=== PATIENT | female | born 1980 | race Caucasian/White ===

== ENCOUNTER 2022-06-27 13:16 | Emergency (ER) | payer OTHER ==
[~2022-06-27] VITALS: Ht 172.7 cm; Wt 62.6 kg
== END 2022-06-27 18:28 | disposition home or self-care (01) ==
LOC: ER 13:16
DX: R42 Dizziness and giddiness (principal)

== ENCOUNTER 2022-06-29 14:06 | Emergency (ER) | payer OTHER ==
[~2022-06-29] VITALS: Ht 172.7 cm; Wt 62.6 kg
== END 2022-06-29 16:30 | disposition home or self-care (01) ==
LOC: ER 14:06
DX: E16.2 Hypoglycemia, unspecified (principal)

== ENCOUNTER → 2024-06-18 | Emergency (ER) | payer OTHER ==
[~2024-06-18] VITALS: Ht 172.7 cm; Wt 68.0 kg
[~2024-06-18] MED LIST: AMOX1TAB5 PO; CEFTRIAXONE SODIUM 1,000 MG VIAL IM ONE; CHILDREN'S ASPI81 MG PO; DULCOLAX STOOL100 M1 PO; IRON325 MG PO
[2024-06-18 08:04] VITALS: BP 106/67; O2SAT 97
[2024-06-18 09:55] LABS: HEMATOCRIT 29.5 % (36.0-45.00); MEAN CELL VOLUME 77.4 fL (80.00-100.00); PLATELET COUNT 323 K/uL (150-450); RED BLOOD COUNT 3.81 M/uL (4.00-6.00); RED CELL DISTRIBUTION WIDTH 18.1 % (11.5-14.5)
[2024-06-18 10:08] LABS: HEMOGLOBIN 9.7 g/dL (12.0-15.00); MEAN CORPUSCULAR HEMOGLOBIN 25.4 pg (27.00-32.0)
== END | disposition home or self-care (01) ==
LOC: ER 07:57
PROVIDERS: General Practice
DX: R53.81 Other malaise (principal)